=== PATIENT | male | born 1965 | race Caucasian/White ===

== ENCOUNTER 2016-07-14 14:04 | Emergency (ER) | payer SELFPAY ==
[~2016-07-14 14:04] MED LIST: CYCL-36 PO; FAMO20 PO; IBUP-232 PO; MULTCAP14 PO; TRAM50 PO
[2016-07-14] MEDS ORDERED: MULTTAB67 PO (14:48)
[2016-07-14] MEDS ORDERED: FAMO1TAB37 PO (14:48)
[2016-07-14] MEDS ORDERED: ORPH100T99 PO (14:59)
[2016-07-14] MEDS ORDERED: TYLETAB34 PO (14:59)
[2016-07-14] MEDS ORDERED: ONDANSETRON HCL 4 MG/2 ML VIAL IM ONE (15:00)
[2016-07-14] MEDS ORDERED: KETOROLAC TROMETHAMINE 60 MG/2 ML (IM) VIAL IM ONE (15:00)
[2016-07-14] MEDS ORDERED: MORPHINE SULFATE 4 MG/ML INJ IM ONE (15:00)
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
[2016-07-14 15:35] VITALS: RESP 16
== END 2016-07-14 15:45 | disposition home or self-care (01) ==
LOC: PHED 14:04
DX: M54.42 Lumbago with sciatica, left side (principal); F17.210 Nicotine dependence, cigarettes, uncomplicated; X50.9XXA Other and unspecified overexertion or strenuous movements or postures, initial encounter; Y93.H9 Activity, other involving exterior property and land maintenance, building and construction; W29.3XXA Contact with powered garden and outdoor hand tools and machinery, initial encounter; Y99.8 Other external cause status
CPT/HCPCS: 96372; 99283; J1885; J2270; J2405

== ENCOUNTER 2016-11-26 07:10 | Emergency (ER) | payer SELFPAY ==
[~2016-11-26] VITALS: Ht 188 cm; Wt 88.2 kg
[~2016-11-26 07:10] MED LIST changes: -CYCL-36 PO; +FAMO1TAB37 PO; -FAMO20 PO; -IBUP-232 PO; -MULTCAP14 PO; +MULTTAB67 PO; +ORPH100T99 PO; -TRAM50 PO; +TYLETAB34 PO
[2016-11-26 07:15] VITALS: BP 198/144; PULSE 85; RESP 18; TEMP 98.6; O2SAT 98
[2016-11-26] MEDS ORDERED: KETOROLAC TROMETHAMINE 30 MG/ML (IVP) VIAL IV PUSH ONE (07:45)
[2016-11-26] MEDS ORDERED: MORPHINE SULFATE 4 MG/ML INJ IV PUSH ONE (07:45)
[2016-11-26] MEDS ORDERED: ONDANSETRON HCL 4 MG/2 ML VIAL IVP ONE (07:45)
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
[2016-11-26 08:00] LABS: AUTOMATED NEUTROPHIL # 6.3 TH/MM3 (1.8-7.7); BASOPHIL # 0.1 TH/MM3 (0-0.2); BASOPHIL % 1.1 % (0.0-2.0); EOSINOPHIL # 0.3 TH/MM3 (0-0.4); EOSINOPHIL % 2.7 % (0.0-4.0); HEMATOCRIT 41.8 % (39.0-51.0); HEMO FLAGS DIFF FINAL; LYMPH % 22.1 % (9.0-44.0); LYMPHOCYTE # 2.1 TH/MM3 (1.0-4.8); MEAN CELL VOLUME 88.6 FL (80.0-100.0); MEAN CORPUSCULAR HEMOGLOBIN 30.1 PG (27.0-34.0); MONO % 4.9 % (0.0-8.0); NEUT % 69.2 % (16.0-70.0); PLATELET COUNT 251 TH/MM3 (150-450); RED BLOOD COUNT 4.71 MIL/MM3 (4.50-5.90); RED CELL DISTRIBUTION WIDTH 12.4 % (11.6-17.2); WHITE BLOOD COUNT 9.3 TH/MM3 (4.0-11.0)
[2016-11-26] MEDS ORDERED: MORPHINE SULFATE 8 MG/ML INJ IV PUSH ONE (08:00)
[2016-11-26 08:11] LABS: POTASSIUM 3.7 MEQ/L (3.5-5.1)
[2016-11-26 08:13] LABS: BICARBONATE 26.4 MEQ/L (21.0-32.0)
[2016-11-26] MEDS ORDERED: IOHEXOL 350 MG/ML 10 ML VIAL (for RAD DIAG) IV ONE (08:35)
[2016-11-26 09:09] VITALS: BP 114/62
--- NOTE | 2016-11-26 09:15 | RADRPT ---
EXAM DATE/TIME: 11/26/2016 08:22 [facility] COMPARISON: No previous studies available for comparison. INDICATIONS : Lower back pain since yesterday after lifting trailer on hitch. Evaluate for aneurysm. IV CONTRAST: 95 cc Omnipaque 350 (iohexol) IV ORAL CONTRAST: No oral contrast ingested. RADIATION DOSE: 11.71 CTDIvol (mGy) MEDICAL HISTORY : Gastroesophageal reflux disease. SURGICAL HISTORY : Orthopedic surgery. ENCOUNTER: Initial ACUITY: 2 days PAIN SCALE: 0/10 LOCATION: lower back TECHNIQUE: Volumetric scanning of the abdomen and pelvis was performed. Using automated exposure control and ad justment of the mA and/or kV according to patient size, radiation dose was kept as low as reasonably achievable to obtain optimal diagnostic quality images. DICOM format image data is available electro nically for review and comparison. FINDINGS: There is mild hepatic steatosis. There is an exophytic simple cyst right midpole kidney anteriorly me asuring 2.8 cm. Gallbladder, spleen, pancreas, adrenal glands are unremarkable. At the midpole of the left kidney posteriorly a small mass measuring 9.9 mm is noted measuring 68 Hounsfield units, likely a hemorrhagic or proteinaceous cyst however incompletely characterized on this study. Prostatic calc ifications are noted. Urinary bladder unremarkable. No evidence of bowel obstruction atherosclerotic calcification of the aorta and iliac vessels identified with focal moderate stenosis of the left comm on iliac artery secondary to crescentic plaque deposition. The osseous structures are intact. Lung ba ses are clear. CONCLUSION: 1. Steatosis. 2. Atherosclerosis. 3. No aneurysm. 4. Right renal cyst. 5. Indeterminate left renal mass likely a hemorrhagic or proteinaceous cyst however further character ization with MRI abdomen with and without contrast recommended on a nonemergent outpatient basis. Ganga Hollingsworth MD on November 26, 2016 at 9:10 Board Certified Radiologist. This report was verified electronically.
[2016-11-26] MEDS ORDERED: TRAM50TA PO (09:20)
== END 2016-11-26 09:34 | disposition home or self-care (01) ==
LOC: PHED 07:10
DX: M54.5 Low back pain (principal); R03.0 Elevated blood-pressure reading, without diagnosis of hypertension; N28.89 Other specified disorders of kidney and ureter; K21.9 Gastro-esophageal reflux disease without esophagitis; F17.210 Nicotine dependence, cigarettes, uncomplicated
CPT/HCPCS: 74177; 80048; 85025; 96374; 96375; 99285; J1885; J2270; J2405; Q9967

== ENCOUNTER 2016-12-09 17:11 | Emergency (ER) | payer SELFPAY ==
[~2016-12-09] VITALS: Ht 182.9 cm; Wt 86.8 kg
[~2016-12-09 17:11] MED LIST changes: -FAMO1TAB37 PO; -MULTTAB67 PO; -ORPH100T99 PO; +TRAM50TA PO; -TYLETAB34 PO
[2016-12-09 17:12] VITALS: BP 138/85; PULSE 80; RESP 20; TEMP 98.8; O2SAT 97
[2016-12-09] MEDS ORDERED: MULTTAB67 PO (17:24)
[2016-12-09] MEDS ORDERED: FAMO20TA2 PO (17:24)
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
--- NOTE | 2016-12-09 18:17 | RADRPT ---
EXAM DATE/TIME: 12/09/2016 17:44 [facility] COMPARISON: No previous studies available for comparison. INDICATIONS : Chronic right neck pain. Radiculopathy. RADIATION DOSE: 26.32 CTDIvol (mGy) MEDICAL HISTORY : Gastroesophageal reflux disease. SURGICAL HISTORY : Orthopedic surgery. ENCOUNTER: Initial ACUITY: 4 - 6 days PAIN SCALE: 9/10 LOCATION: Right neck TECHNIQUE: Volumetric scanning of the cervical spine was performed. Multiplanar reconstructions in the sagittal, coronal and oblique axial planes were performed. Using automated exposure control and adjustment o f the mA and/or kV according to patient size, radiation dose was kept as low as reasonably achievable to obtain optimal diagnostic quality images. DICOM format image data is available electronically f or review and comparison. FINDINGS: VERTEBRAE: Normal vertebral body height. ALIGNMENT: No evidence of subluxation. C2-C3: The bony spinal canal is normal in size. No evidence of disc bulge or herniation. The neural forami na are bilaterally patent. C3-C4: The bony spinal canal is normal in size. No evidence of disc bulge or herniation. The neural forami na are bilaterally patent. C4-C5: The bony spinal canal is normal in size. No evidence of disc bulge or herniation. The neural forami na are bilaterally patent. C5-C6: Moderate endplate ossific spurring and asymmetric right-sided uncovertebral osteophyte spurring with slight indentation of the right lateral recess and moderate asymmetrically right-sided foraminal sten osis. C6-C7: Mild endplate osteophytic spurring, mildly asymmetric to the right. No significant bony canal stenosi s. Foramina appear adequate. C7-T1: The bony spinal canal is normal in size. No evidence of disc bulge or herniation. The neural forami na are bilaterally patent. CONCLUSION: Degenerative changes with endplate and uncovertebral osteophytes most significantly at C5-6 and C6-7. Asymmetric right-sided bony neural foraminal stenosis may affect the right C6 nerve root distributio n. Correlation recommended. Delfino Hewitt MD on December 09, 2016 at 18:12 Board Certified Radiologist. This report was verified electronically.
[2016-12-09] MEDS ORDERED: ROBA750T PO (18:22)
[2016-12-09] MEDS ORDERED: HYDR-3533 PO (18:22)
== END 2016-12-09 18:36 | disposition home or self-care (01) ==
LOC: PHEFT 17:11
DX: M54.10 Radiculopathy, site unspecified (principal); M54.2 Cervicalgia; M25.511 Pain in right shoulder; M79.601 Pain in right arm; R20.2 Paresthesia of skin; F17.200 Nicotine dependence, unspecified, uncomplicated; Z86.59 Personal history of other mental and behavioral disorders; Z87.19 Personal history of other diseases of the digestive system; Z87.39 Personal history of other diseases of the musculoskeletal system and connective tissue
CPT/HCPCS: 72125; 99284

== ENCOUNTER 2017-01-23 14:58 | Observation (INO) | payer SELFPAY ==
[~2017-01-23 14:58] MED LIST changes: +FAMO20TA2 PO; +HYDR-3533 PO; +MULTTAB67 PO; +ROBA750T PO
[2017-01-23 15:06] VITALS: BP 139/79; PULSE 84; RESP 20; TEMP 97.9; O2SAT 99
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
[2017-01-23 15:29] VITALS: O2SAT 98
[2017-01-23 15:30] LABS: AUTOMATED NEUTROPHIL # 7.7 TH/MM3 (1.8-7.7); BASOPHIL # 0.1 TH/MM3 (0-0.2); BASOPHIL % 0.5 % (0.0-2.0); EOSINOPHIL # 0.2 TH/MM3 (0-0.4); EOSINOPHIL % 1.8 % (0.0-4.0); HEMO FLAGS DIFF FINAL; LYMPH % 23.4 % (9.0-44.0); LYMPHOCYTE # 2.7 TH/MM3 (1.0-4.8); MEAN CELL VOLUME 88.5 FL (80.0-100.0); MEAN CORPUSCULAR HEMOGLOBIN 30.5 PG (27.0-34.0); MEAN CORPUSCULAR HGB CONC 34.5 % (32.0-36.0); MONO % 5.8 % (0.0-8.0); NEUT % 68.5 % (16.0-70.0); PLATELET COUNT 288 TH/MM3 (150-450); RED BLOOD COUNT 4.64 MIL/MM3 (4.50-5.90); RED CELL DISTRIBUTION WIDTH 12.4 % (11.6-17.2); WHITE BLOOD COUNT 11.4 TH/MM3 (4.0-11.0)
[2017-01-23] MEDS ORDERED: SODIUM CHLORIDE 0.9% FLUSH 10 ML FLUSH IVF PRN (15:30)
[2017-01-23 15:39] LABS: CHLORIDE 107 MEQ/L (98-107); POTASSIUM 3.4 MEQ/L (3.5-5.1); SODIUM (NA) 137 MEQ/L (136-145)
[2017-01-23 15:42] LABS: ANION GAP 10 MEQ/L (5-15); BICARBONATE 20.2 MEQ/L (21.0-32.0); BLOOD UREA NITROGEN 17 MG/DL (7-18)
[2017-01-23 15:44] LABS: APTT (PATIENT) 31.1 SEC (24.3-30.1); PROTHROMBIN TIME - PATIENT 10.7 SEC (9.8-11.6)
[2017-01-23 15:45] LABS: GLOMERULAR FILTRATION RATE 89 ML/MIN (>89)
[2017-01-23 15:48] LABS: CREATINE KINASE 191 U/L (39-308)
--- NOTE | 2017-01-23 15:56 | RADRPT ---
EXAM DATE/TIME: 01/23/2017 15:32 [facility] COMPARISON: No previous studies available for comparison. INDICATIONS : Chest pain. MEDICAL HISTORY : None. SURGICAL HISTORY : None. ENCOUNTER: Initial ACUITY: 1 day PAIN SCORE: 8/10 LOCATION: Bilateral chest FINDINGS: A single view of the chest demonstrates the lungs to be symmetrically aerated without evidence of mas s, infiltrate or effusion. The cardiomediastinal contours are unremarkable. Osseous structures are intact. CONCLUSION: 1. No acute cardiopulmonary disease. Jonah Ferguson MD on January 23, 2017 at 15:55 Board Certified Radiologist. This report was verified electronically.
[2017-01-23 16:01] LABS: CKMB 1.4 NG/ML (0.5-3.6)
[2017-01-23] MEDS ORDERED: POTASSIUM CHLORIDE 20 MEQ CONTROLLED RELEASE TAB PO ONE (16:15)
--- NOTE | 2017-01-23 16:15 | PD ---
Physical Exam Date Seen by Provider: Jan 23, 2017 Time Seen by Provider: 16:13 Narrative This 51-year-old male presented with complaint of chest pain. He had a pressure type sensation on his chest off and on throughout the day. 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 He has no history of heart disease. He says smoke. He has no family history of heart disease. He is not having pain at this time. He took aspirin prior to coming. He was seen by Dr. Rodríguez who ordered the echo evaluation. His EKG is normal as is troponin. Patient be admitted to chest pain center for further evaluation. Chest x-ray has been read as negative Data Data Last Documented VS Vital Signs Date Time Temp Pulse Resp B/P (MAP) Pulse Ox O2 Delivery O2 Flow Rate FiO2 01/23/17 15:29 98 Room Air 01/23/17 15:06 97.9 84 20 139/79 (99) Orders Orders Electrocardiogram (01/23/17 15:18) Basic Metabolic Panel (Bmp) (01/23/17 15:18) Ckmb (Isoenzyme) Profile (01/23/17 15:18) Complete Blood Count With Diff (01/23/17 15:18) Prothrombin Time / Inr (Pt) (01/23/17 15:18) Act Partial Throm Time (Ptt) (01/23/17 15:18) Troponin I (01/23/17 15:18) Chest, Single Ap (01/23/17 15:18) Ecg Monitoring (01/23/17 15:18) Iv Access Insert/Monitor (01/23/17 15:18) Oximetry (01/23/17 15:18) Sodium Chloride 0.9% Flush (Ns Flush) (01/23/17 15:30) CKMB (01/23/17 15:24) CKMB% (01/23/17 15:24) Potassium Chloride (Kcl) (01/23/17 16:15) Labs Laboratory Tests Test 01/23/17 15:24 White Blood Count 11.4 TH/MM3 Red Blood Count 4.64 MIL/MM3 Hemoglobin 14.2 GM/DL Hematocrit 41.0 % Mean Corpuscular Volume 88.5 FL Mean Corpuscular Hemoglobin 30.5 PG Mean Corpuscular Hemoglobin Concent 34.5 % Red Cell Distribution Width 12.4 % Platelet Count 288 TH/MM3 Mean Platelet Volume 7.6 FL Neutrophils (%) (Auto) 68.5 % Lymphocytes (%) (Auto) 23.4 % Monocytes (%) (Auto) 5.8 % Eosinophils (%) (Auto) 1.8 % Basophils (%) (Auto) 0.5 % Neutrophils # (Auto) 7.7 TH/MM3 Lymphocytes # (Auto) 2.7 TH/MM3 Monocytes # (Auto) 0.7 TH/MM3 Eosinophils # (Auto) 0.2 TH/MM3 Basophils # (Auto) 0.1 TH/MM3 CBC Comment DIFF FINAL Differential Comment Prothrombin Time 10.7 SEC Prothromb Time International Ratio 1.0 RATIO Activated Partial Thromboplast Time 31.1 SEC Blood Urea Nitrogen 17 MG/DL Creatinine 0.90 MG/DL Random Glucose 120 MG/DL Calcium Level 8.3 MG/DL Sodium Level 137 MEQ/L Potassium Level 3.4 MEQ/L Chloride Level 107 MEQ/L Carbon Dioxide Level 20.2 MEQ/L Anion Gap 10 MEQ/L Estimat Glomerular Filtration Rate 89 ML/MIN Total Creatine Kinase 191 U/L Creatine Kinase MB 1.4 NG/ML Troponin I LESS THAN 0.02 NG/ML MDM Medical Record Reviewed: Yes Supervised Visit with GARCIA: No Differential Diagnosis Differential includes GERD, musculoskeletal pain, coronary artery disease Narrative Course Patient is asymptomatic at present. Initial tests are normal. He will be admitted to chest pain center for further evaluation Diagnosis Primary Impression: Chest pain in adult Admitting Information Admitting Physician Requests: Observation Aaron Mendoza MD Jan 23, 2017 16:15
[2017-01-23 17:22] VITALS: BP 118/64
--- NOTE | 2017-01-24 11:14 | EKG ---
Date Performed: 01/23/2017 Time Performed: 15:04:47 PTAGE: 51 years EKG: Sinus rhythm NORMAL ECG NO PREVIOUS TRACING DOCTOR: Juan Gallardo Interpretating Date/Time 01/24/2017 11:12:48
== END 2017-01-23 17:59 | disposition left against medical advice (07) ==
LOC: PHED 14:58 → PHEDA 16:24
PROVIDERS: ADMIT Internal Medicine; ATTEND Internal Medicine
DX: R07.89 Other chest pain (principal); K21.9 Gastro-esophageal reflux disease without esophagitis; Z72.0 Tobacco use
CPT/HCPCS: 71010; 80048; 82550; 82552; 84484; 85025; 85610; 85730; 93005; 99285; G0378

== ENCOUNTER 2017-06-04 15:32 | Emergency (ER) | payer SELFPAY ==
[~2017-06-04] VITALS: Ht 154.9 cm; Wt 91.0 kg
[~2017-06-04 15:32] MED LIST changes: -HYDR-3533 PO; -ROBA750T PO; -TRAM50TA PO
[2017-06-04 15:42] VITALS: BP 136/64; PULSE 86; RESP 18; TEMP 98.5; O2SAT 96
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
== END 2017-06-04 16:39 | disposition home or self-care (01) ==
LOC: PHEFT 15:32
DX: J06.9 Acute upper respiratory infection, unspecified (principal); R59.0 Localized enlarged lymph nodes; F32.9 Major depressive disorder, single episode, unspecified; K21.9 Gastro-esophageal reflux disease without esophagitis; Z88.8 Allergy status to other drugs, medicaments and biological substances; Z79.899 Other long term (current) drug therapy
CPT/HCPCS: 99281